=== PATIENT | male | born 1980 | race Caucasian/White ===

== ENCOUNTER 2020-11-27 03:19 | Inpatient (IN) | payer SELFPAY ==
[2020-11-27] MEDS ORDERED: Promethazine HCl 25 MG/ML VIAL IM PRN ×2 (03:46)
[2020-11-27] MEDS ORDERED: Ketorolac Tromethamine 30 MG/ML VIAL IVP SCH (03:46)
[2020-11-27] MEDS ORDERED: Dextrose 50% Abboject 50 ML SYRINGE SLOW IVP PRN (03:46)
[2020-11-27] MEDS ORDERED: Ondansetron ODT 4 MG TAB PO PRN (03:46)
[2020-11-27] MEDS ORDERED: Dextrose 5% in Water 1,000 ML IV PRN (03:46)
[2020-11-27] MEDS ORDERED: Morphine 2 MG/ML VIAL SLOW IVP PRN (03:46)
[2020-11-27] MEDS ORDERED: Sodium Chloride 0.9% 1,000 ML IV SCH (03:46)
[2020-11-27] MEDS ORDERED: traMADol HCl 50 MG TAB PO PRN (03:46)
[2020-11-27] MEDS ORDERED: hydrALAZINE 20 MG/ML VIAL SLOW IVP PRN (03:46)
[2020-11-27] MEDS ORDERED: Ondansetron PF 4 MG/2 ML Vial IVP PRN (03:46)
[2020-11-27] MEDS ORDERED: Acetaminophen 500 MG TAB PO SCH (04:00)
[2020-11-27] MEDS ORDERED: Ibuprofen 800 MG TAB PO SCH (04:00)
[2020-11-27] MEDS: traMADol HCl 50 MG TAB PO SCH ×4 (04:03→20:52)
[2020-11-27 04:20] VITALS: BMI 21.4
[2020-11-27] MEDS: Ibuprofen 800 MG TAB PO SCH ×3 (08:47→20:53)
[2020-11-27] MEDS: Famotidine 20 MG TAB PO SCH ×2 (08:48→20:53)
[2020-11-27] MEDS: Acetaminophen 500 MG TAB PO SCH ×2 (12:45→17:39)
[2020-11-28] MEDS: traMADol HCl 50 MG TAB PO SCH ×4 (04:45→23:50)
[2020-11-28] MEDS: Acetaminophen 500 MG TAB PO SCH ×5 (06:02→23:50)
[2020-11-28] MEDS: Senokot S 8.6-50 MG TAB PO SCH ×2 (08:51→21:29)
[2020-11-28] MEDS: Ibuprofen 800 MG TAB PO SCH ×3 (08:51→21:29)
[2020-11-28] MEDS: Famotidine 20 MG TAB PO SCH ×2 (08:52→21:29)
[2020-11-28] MEDS: Ferrous Sulfate 325 MG TAB PO SCH ×2 (08:52→17:05)
[2020-11-28 09:37] LABS: #Basophils 0.1 thou/uL (0.0-0.2); #Eosinphils 0.2 thou/uL (0.0-0.7); #Lymphocytes 1.5 thou/uL (1.20-3.40); #Monocytes 0.9 thou/uL (0.11-0.59); #Neutrophils 8.6 thou/uL (1.40-6.50); %Basophils 0.6 % (0.0-1.0); %Eosinophils 2.1 % (0.0-10.0); %Lymphocytes 13.6 % (21.0-51.0); %Neutrophils 75.7 % (42.0-75.0); Hemoglobin 13.5 g/dL (14.0-18.0); Mean Corpuscular HGB CONC 33.7 g/dL (32.0-36.0); Mean Corpuscular Hemoglobin 33.4 pg (27.0-31.0); Mean Platelet Volume 7.3 fL (7.4-10.4); Platelet Count 260 thou/uL (130-400); RBC Distribution Width 11.1 % (11.5-14.5); Red Blood Cell (RBC) Count 4.05 mill/uL (4.70-6.10); White Blood Cell (WBC) Count 11.3 thou/uL (4.8-10.8)
[2020-11-28 09:59] LABS: Anion Gap 10 mmol/L (10-20); BUN (Urea Nitrogen) 11 mg/dL (8.9-20.6); Calc. Creatinine Clearance 106 mL/min (70-130); Calcium 9.1 mg/dL (7.8-10.44); Carbon Dioxide 28 mmol/L (22-29); Chloride 102 mmol/L (98-107); Glucose 119 mg/dL (70-105); Potassium 4.1 mmol/L (3.5-5.1); Sodium 136 mmol/L (136-145)
[2020-11-28] MEDS: Cyclobenzaprine 10 MG TAB PO PRN (23:50)
[2020-11-29] MEDS: Acetaminophen 500 MG TAB PO SCH ×3 (06:06→17:21)
[2020-11-29] MEDS: traMADol HCl 50 MG TAB PO SCH ×4 (06:06→22:16)
[2020-11-29] MEDS: Senokot S 8.6-50 MG TAB PO SCH ×2 (08:59→21:39)
[2020-11-29] MEDS: Famotidine 20 MG TAB PO SCH ×2 (08:59→21:39)
[2020-11-29] MEDS: Ibuprofen 800 MG TAB PO SCH ×3 (08:59→21:39)
[2020-11-29] MEDS: Ferrous Sulfate 325 MG TAB PO SCH ×2 (09:04→17:21)
[2020-11-29] MEDS: Enoxaparin Sodium 40 MG/0.4 ML SYRINGE SC SCH (09:04)
[2020-11-29] MEDS: Cyclobenzaprine 10 MG TAB PO PRN (21:39)
[2020-11-30] MEDS: Acetaminophen 500 MG TAB PO SCH ×4 (00:26→17:40)
[2020-11-30] MEDS: traMADol HCl 50 MG TAB PO SCH ×4 (04:04→21:04)
[2020-11-30] MEDS: Ibuprofen 800 MG TAB PO SCH ×3 (08:39→20:57)
[2020-11-30] MEDS: Senokot S 8.6-50 MG TAB PO SCH ×2 (08:42→20:56)
[2020-11-30] MEDS: Ferrous Sulfate 325 MG TAB PO SCH ×2 (08:42→17:40)
[2020-11-30] MEDS: Enoxaparin Sodium 40 MG/0.4 ML SYRINGE SC SCH (08:42)
[2020-11-30] MEDS: Cyclobenzaprine 10 MG TAB PO PRN (20:56)
[2020-11-30] MEDS ORDERED: diphenhydrAMINE 25 MG CAP PO PRN (21:24)
[2020-12-01] MEDS: Acetaminophen 500 MG TAB PO SCH ×5 (00:17→23:51)
[2020-12-01] MEDS: traMADol HCl 50 MG TAB PO SCH ×4 (04:05→22:20)
[2020-12-01] MEDS: Senokot S 8.6-50 MG TAB PO SCH ×2 (09:05→20:39)
[2020-12-01] MEDS: Ferrous Sulfate 325 MG TAB PO SCH ×2 (09:05→18:40)
[2020-12-01] MEDS: Ibuprofen 800 MG TAB PO SCH ×3 (09:06→20:38)
[2020-12-01] MEDS: Enoxaparin Sodium 40 MG/0.4 ML SYRINGE SC SCH (09:06)
[2020-12-01] MEDS: Famotidine 20 MG TAB PO SCH (20:38)
[2020-12-01] MEDS ORDERED: Ibuprofen 800 MG TAB PO PRN (21:27)
[2020-12-01] MEDS: Sodium Chloride 0.9% 1,000 ML IV SCH (23:38)
[2020-12-02] MEDS: traMADol HCl 50 MG TAB PO SCH ×4 (03:57→21:55)
[2020-12-02] MEDS: Acetaminophen 500 MG TAB PO SCH ×3 (05:47→17:47)
[2020-12-02] MEDS: Ferrous Sulfate 325 MG TAB PO SCH ×2 (07:51→17:48)
[2020-12-02] MEDS: Enoxaparin Sodium 30 MG/0.3 ML SYRINGE SC SCH ×2 (07:52→20:30)
[2020-12-02] MEDS ORDERED: CEFAZOLIN 2 GM in Premix Bag 1 BAG IVPB SCH (08:30)
[2020-12-02 08:55] LABS: #Basophils 0.1 thou/uL (0.0-0.2); #Eosinphils 0.4 thou/uL (0.0-0.7); #Lymphocytes 1.7 thou/uL (1.20-3.40); #Monocytes 0.8 thou/uL (0.11-0.59); #Neutrophils 3.8 thou/uL (1.40-6.50); %Basophils 1.4 % (0.0-1.0); %Eosinophils 6.4 % (0.0-10.0); %Lymphocytes 24.4 % (21.0-51.0); %Monocytes 11.3 % (0.0-10.0); %Neutrophils 56.5 % (42.0-75.0); Hemoglobin 14.1 g/dL (14.0-18.0); Mean Corpuscular Volume 99.9 fL (78.0-98.0); Mean Platelet Volume 6.9 fL (7.4-10.4); Platelet Count 350 thou/uL (130-400); RBC Distribution Width 11.3 % (11.5-14.5); Red Blood Cell (RBC) Count 4.39 mill/uL (4.70-6.10); White Blood Cell (WBC) Count 6.8 thou/uL (4.8-10.8)
[2020-12-02 09:10] LABS: Anion Gap 14 mmol/L (10-20); BUN (Urea Nitrogen) 12 mg/dL (8.9-20.6); Calc. Creatinine Clearance 111 mL/min (70-130); Calcium 9.3 mg/dL (7.8-10.44); Carbon Dioxide 25 mmol/L (22-29); Chloride 103 mmol/L (98-107); Glucose 82 mg/dL (70-105); Magnesium 1.8 mg/dL (1.6-2.6); Phosphorus 3.1 mg/dL (2.3-4.7); Potassium 4.7 mmol/L (3.5-5.1); Sodium 137 mmol/L (136-145)
[2020-12-02] MEDS: Sodium Chloride 0.9% 1,000 ML IV SCH (09:25)
[2020-12-02] MEDS: Famotidine 20 MG TAB PO SCH ×2 (09:31→20:30)
[2020-12-02] MEDS: Gabapentin 300 MG CAP PO SCH ×3 (09:31→20:29)
[2020-12-02] MEDS: Senokot S 8.6-50 MG TAB PO SCH ×2 (09:36→20:30)
[2020-12-02] MEDS ORDERED: Fentanyl 250 MCG/5 ML VIAL ONE (12:07)
[2020-12-02] MEDS ORDERED: Famotidine/PF 20 mg/2ml Vial ONE (12:37)
[2020-12-02] MEDS ORDERED: Rocuronium Bromide 10 MG/ML (10ML VIAL) ONE (12:58)
[2020-12-02] MEDS ORDERED: Ondansetron PF 4 MG/2 ML Vial ONE (12:58)
[2020-12-02] MEDS ORDERED: Glycopyrrolate 0.2 MG/ML 5 ML SYRINGE ONE (12:58)
[2020-12-02] MEDS ORDERED: Dexamethasone 20 MG/5 ML VIAL ONE (12:58)
[2020-12-02] MEDS ORDERED: Lidocaine 1% PF 5 ML VIAL ONE (12:58)
[2020-12-02] MEDS ORDERED: PROPOFOL 200 MG/20 ML VIAL ONE (12:58)
[2020-12-02] MEDS ORDERED: Bupivacaine PF 0.5% 30 ML VIAL ONE (14:12)
[2020-12-02] MEDS ORDERED: Ondansetron HCl/PF 4 MG/2 ML Vial IVP PRN (15:07)
[2020-12-02] MEDS ORDERED: HYDROmorphone 2 MG/ML VIAL SLOW IVP PRN (15:07)
[2020-12-02] MEDS ORDERED: Promethazine HCl 25 MG/ML VIAL IM PRN (15:07)
[2020-12-02] MEDS ORDERED: Promethazine HCl 25 MG/ML VIAL IVPB PRN (15:07)
[2020-12-02] MEDS ORDERED: Fentanyl 100 MCG/2 ML VIAL ONE (15:43)
[2020-12-02] MEDS ORDERED: HYDROmorphone 2 MG/ML VIAL ONE (15:43)
[2020-12-02] MEDS ORDERED: Ketorolac Tromethamine 30 MG/ML VIAL ONE (15:43)
[2020-12-02] MEDS: CEFAZOLIN 2 GM in Premix Bag 1 BAG IVPB SCH (20:29)
[2020-12-03] MEDS: Acetaminophen 500 MG TAB PO SCH ×3 (00:34→12:59)
[2020-12-03] MEDS: traMADol HCl 50 MG TAB PO SCH ×3 (04:11→15:34)
[2020-12-03] MEDS: CEFAZOLIN 2 GM in Premix Bag 1 BAG IVPB SCH (04:11)
[2020-12-03 06:59] LABS: #Lymphocytes 1.7 thou/uL (1.20-3.40); #Monocytes 1.6 thou/uL (0.11-0.59); #Neutrophils 10.7 thou/uL (1.40-6.50); %Basophils 0.2 % (0.0-1.0); %Eosinophils 0.1 % (0.0-10.0); %Lymphocytes 12.3 % (21.0-51.0); %Monocytes 11.5 % (0.0-10.0); %Neutrophils 75.9 % (42.0-75.0); Hemoglobin 13.3 g/dL (14.0-18.0); Mean Corpuscular Hemoglobin 33.9 pg (27.0-31.0); Mean Corpuscular Volume 99.7 fL (78.0-98.0); Mean Platelet Volume 7.1 fL (7.4-10.4); Platelet Count 348 thou/uL (130-400); RBC Distribution Width 11.1 % (11.5-14.5); Red Blood Cell (RBC) Count 3.91 mill/uL (4.70-6.10); White Blood Cell (WBC) Count 14.1 thou/uL (4.8-10.8)
[2020-12-03] MEDS: Gabapentin 300 MG CAP PO SCH ×2 (09:35→15:29)
[2020-12-03] MEDS: Senokot S 8.6-50 MG TAB PO SCH (09:36)
[2020-12-03] MEDS: Enoxaparin Sodium 30 MG/0.3 ML SYRINGE SC SCH (09:37)
[2020-12-03] MEDS: Ferrous Sulfate 325 MG TAB PO SCH (09:40)
[2020-12-03 15:42] VITALS: BP 129/82; TEMP 97.9
== END 2020-12-03 16:10 | disposition home or self-care (01) | DRG 505 ==
LOC: SURG B 03:19
PROVIDERS: ADMIT Specialist; ATTEND Specialist
PROC: 0QSM04Z Reposition Left Tarsal with Internal Fixation Device, Open Approach (ICD-10-PCS; principal; 2020-12-02)
PROC: 0QSL04Z Reposition Right Tarsal with Internal Fixation Device, Open Approach (ICD-10-PCS; 2020-12-02)
DX: S92.062A Displaced intraarticular fracture of left calcaneus, initial encounter for closed fracture (principal); S92.061A Displaced intraarticular fracture of right calcaneus, initial encounter for closed fracture; F17.290 Nicotine dependence, other tobacco product, uncomplicated; W17.89XA Other fall from one level to another, initial encounter; Y92.039 Unspecified place in apartment as the place of occurrence of the external cause
CPT/HCPCS: 36415; 76000; 80048; 83735; 84100; 85025; J0690; J1100; J1170; J1650; J1885; J2405; J2704; J3010; J7050; Q0163; S0020; S0028